=== PATIENT | female | born 1990 | race African-American/Black ===

== ENCOUNTER 2017-02-12 09:34 | Emergency (ER) | payer MEDICARE, MEDICAID ==
[~2017-02-12] VITALS: Ht 162.6 cm; Wt 77.1 kg
[2017-02-12 09:34] VITALS: BP 153/94
[2017-02-12] MEDS ORDERED: IBUPROFEN 100MG/5ML ORAL SUSP 100 MG/5 ML UD PO ONE (11:15)
== END 2017-02-12 11:25 | disposition home or self-care (01) ==
LOC: ER 09:34 → EDBD 09:34 → ER 11:25
DX: M79.1 Myalgia (principal); F79 Unspecified intellectual disabilities; W19.XXXA Unspecified fall, initial encounter; Y93.89 Activity, other specified; Y99.8 Other external cause status; Y92.89 Other specified places as the place of occurrence of the external cause